=== PATIENT | female | born 1955 | race American Indian/Alaskan Native ===

== ENCOUNTER → 2019-01-02 | Outpatient (CLI) | payer MEDICARE ==
[2019-01-02 10:49] LABS: BASOPHILS ABSOLUTE AUTO 0.06 K/mm3 (0.00-0.23); BASOPHILS PERCENT AUTO 1 % (0-2); EOSINOPHILS ABSOLUTE AUTO 0.12 K/mm3 (0.00-0.68); EOSINOPHILS PERCENT AUTO 2 % (0-6); Hematocrit 34.7 % (33.0-51.0); IMMATURE GRAN ABSOLUTE AUTO 0.03 K/mm3 (0.00-0.10); IMMATURE GRAN PERCENT AUTO 1 % (0-1); LYMPHOCYTES ABSOLUTE AUTO 1.98 K/mm3 (0.84-5.20); LYMPHOCYTES PERCENT AUTO 33 % (21-46); MONOCYTES ABSOLUTE AUTO 0.43 K/mm3 (0.16-1.47); MONOCYTES PERCENT AUTO 7 % (4-13); Mean Corpuscular HGB 35.3 pg (26.0-34.0); Mean Corpuscular HGB Conc 34.6 g/dL (31.5-36.5); Mean Corpuscular Volume 102 fL (80-100); Mean Platelet Volume 10.4 fL (9.1-12.4); NEUTROPHILS ABSOLUTE AUTO 3.35 K/mm3 (1.96-9.15); NEUTROPHILS PERCENT AUTO 56 % (41-73); Platelet Count 200 K/mm3 (150-400); RDW Coefficient Variation 17.6 % (11.7-14.2); RDW Standard Deviation 65.1 fL (35.1-46.3); White Blood Cell Count 5.97 K/mm3 (4.00-11.30)
[2019-01-02 10:58] LABS: Alanine Aminotransfer (ALT/SGP 79 U/L (12-78); Albumin, Blood 2.8 g/dL (3.4-5.0); Albumin/Globulin Ratio 0.8 (0.8-1.8); Alk Phos 129 U/L (40-126); Anion Gap 14 mmol/L (6-16); Aspartate Aminotrans (AST/SGOT 198 U/L (12-37); Bilirubin, Total 0.6 mg/dL (0.1-1.0); Blood Urea Nitrogen 8 mg/dL (8-24); Bun/Creatinine Ratio 10.1 (12.0-20.0); CO2, Blood 30 mmol/L (21-32); Calcium, Blood 8.8 mg/dL (8.5-10.1); Chloride, Blood 101 mmol/L (98-108); Creatinine, Blood 0.79 mg/dL (0.40-1.00); Globulin, Blood 3.5 g/dL (2.2-4.0); Glomerular Filtration Rate >60 (60-); Glucose, Blood 151 mg/dL (70-99); Potassium, Blood 2.7 mmol/L (3.5-5.5); Sodium, Blood 145 mmol/L (136-145); Total Protein, Blood 6.3 g/dL (6.4-8.2)
== END | disposition home or self-care (01) ==
LOC: LAB EV 10:45 → LAB SHORT 10:45
PROVIDERS: Family Medicine
DX: R60.0 Localized edema (principal)
CPT/HCPCS: 80053; 85025

== ENCOUNTER 2019-02-28 22:26 | Inpatient (IN) | payer MEDICARE ==
[~2019-02-28] VITALS: Ht 154.9 cm; Wt 59.9 kg
[2019-02-28 22:51] LABS: BASOPHILS ABSOLUTE AUTO 0.07 K/mm3 (0.00-0.23); BASOPHILS PERCENT AUTO 2 % (0-2); EOSINOPHILS ABSOLUTE AUTO 0.08 K/mm3 (0.00-0.68); EOSINOPHILS PERCENT AUTO 2 % (0-6); Hematocrit 31.5 % (33.0-51.0); Hemoglobin 10.9 g/dL (11.5-16.0); IMMATURE GRAN ABSOLUTE AUTO 0.03 K/mm3 (0.00-0.10); IMMATURE GRAN PERCENT AUTO 1 % (0-1); LYMPHOCYTES ABSOLUTE AUTO 1.35 K/mm3 (0.84-5.20); LYMPHOCYTES PERCENT AUTO 32 % (21-46); MONOCYTES ABSOLUTE AUTO 0.53 K/mm3 (0.16-1.47); MONOCYTES PERCENT AUTO 13 % (4-13); Mean Corpuscular HGB 37.5 pg (26.0-34.0); Mean Corpuscular HGB Conc 34.6 g/dL (31.5-36.5); Mean Corpuscular Volume 108 fL (80-100); Mean Platelet Volume 10.3 fL (9.1-12.4); NEUTROPHILS ABSOLUTE AUTO 2.13 K/mm3 (1.96-9.15); NEUTROPHILS PERCENT AUTO 51 % (41-73); Platelet Count 151 K/mm3 (150-400); RDW Coefficient Variation 12.8 % (11.7-14.2); Red Blood Cell Count 2.91 M/mm3 (3.80-5.20); White Blood Cell Count 4.19 K/mm3 (4.00-11.30)
[2019-02-28 22:52] LABS: Base Excess Venous 3.6 mmol/L; Bicarbonate Venous 27.3 mmol/L (24.0-30.0); PCO2 Venous 42.8 mmHg (38-42); PO2 Venous 110 mmHg (38-42); pH Blood Venous 7.43 (7.34-7.37)
[2019-02-28 23:21] LABS: Alanine Aminotransfer (ALT/SGP 43 U/L (12-78); Albumin, Blood 2.5 g/dL (3.4-5.0); Albumin/Globulin Ratio 0.9 (0.8-1.8); Alk Phos 114 U/L (50-136); Anion Gap 16 mmol/L (6-16); Aspartate Aminotrans (AST/SGOT 106 U/L (12-37); Bilirubin, Total 0.4 mg/dL (0.1-1.0); Blood Urea Nitrogen 8 mg/dL (8-24); Bun/Creatinine Ratio 11.9 (12.0-20.0); CO2, Blood 26 mmol/L (21-32); Calcium, Blood 7.8 mg/dL (8.5-10.1); Chloride, Blood 105 mmol/L (98-108); Creatinine, Blood 0.67 mg/dL (0.40-1.00); Globulin, Blood 2.8 g/dL (2.2-4.0); Glomerular Filtration Rate >60 (60-); Glucose, Blood 82 mg/dL (70-99); Potassium, Blood 2.6 mmol/L (3.5-5.5); Sodium, Blood 147 mmol/L (136-145); Total Protein, Blood 5.3 g/dL (6.4-8.2); Troponin I <0.015 ng/mL (0.000-0.040)
[2019-02-28 23:40] LABS: Ethanol (Alcohol), Blood, Med 302 mg/dL
[2019-03-01] MEDS ORDERED: ATEN25 (01:17)
[2019-03-01] MEDS ORDERED: AMLO5 PO (01:17)
[2019-03-01] MEDS ORDERED: CLON1 (01:17)
[2019-03-01] MEDS ORDERED: LISI5 PO (01:18)
[2019-03-01 04:13] LABS: Hematocrit 36.1 % (33.0-51.0); Hemoglobin 12.4 g/dL (11.5-16.0); Mean Corpuscular HGB 37.1 pg (26.0-34.0); Mean Corpuscular HGB Conc 34.3 g/dL (31.5-36.5); Mean Corpuscular Volume 108 fL (80-100); Mean Platelet Volume 10.3 fL (9.1-12.4); Platelet Count 177 K/mm3 (150-400); RDW Coefficient Variation 12.9 % (11.7-14.2); RDW Standard Deviation 51.1 fL (35.1-46.3); Red Blood Cell Count 3.34 M/mm3 (3.80-5.20); White Blood Cell Count 5.74 K/mm3 (4.00-11.30)
[2019-03-01 04:38] LABS: Alanine Aminotransfer (ALT/SGP 53 U/L (12-78); Albumin, Blood 2.8 g/dL (3.4-5.0); Albumin/Globulin Ratio 0.9 (0.8-1.8); Alk Phos 134 U/L (50-136); Anion Gap 12 mmol/L (6-16); Aspartate Aminotrans (AST/SGOT 111 U/L (12-37); Bilirubin, Total 0.5 mg/dL (0.1-1.0); Blood Urea Nitrogen 7 mg/dL (8-24); Bun/Creatinine Ratio 9.9 (12.0-20.0); CO2, Blood 26 mmol/L (21-32); Calcium, Blood 7.7 mg/dL (8.5-10.1); Chloride, Blood 108 mmol/L (98-108); Creatinine, Blood 0.71 mg/dL (0.40-1.00); Globulin, Blood 3.1 g/dL (2.2-4.0); Glomerular Filtration Rate >60 (60-); Glucose, Blood 101 mg/dL (70-99); Potassium, Blood 3.5 mmol/L (3.5-5.5); Sodium, Blood 146 mmol/L (136-145); Total Protein, Blood 5.9 g/dL (6.4-8.2)
--- NOTE | 2019-03-01 06:52 | NUR ---
SURGICAL FLOOR SUMMARY (NOC) PATIENT ARRIVED TO SURGICAL FLOOR THIS SHIFT FROM ER ADMITTED OBS. PATIENT ALERT AND ORIENTED X4 WITH NOTED ANXIETY AND NONCOMPLIANCE OF HOME OXYGEN USE AND MEDICATIONS. PATIENT SOB WITH EXCERTION AND SATURATIONS REMAINED IN THE LOW 80% ON 6 LPM NC - RESPIRTORY THERAPY CALLED AND MD HOBSON CALLED - NEW ORDERS PLACED AND PATIENT PLACE ON HIGH FLOW CANNULA AT 8-10 LPM AND GIVEN NEB TREATMENT. PATIENT AMBULATES TO BATHROOM WITH STEADY GAIT. HEART RATE 80'S IN NSR WITH NO EVENTS NOTED. PATIENT VOIDING DARK URINE - UNABLE TO COLLECT A CLEAN SAMPLE AT THIS TIME. PATIENT DENIES ANY CHEST PAIN, PRESSURE OR DISCOMFORT. PATIENT NAUSEAS AT TIMES - MEDICATED PER EMAR. NO FURTHER ACUTE FINDINGS NOTED. LUNG SOUNDS CLEAR TO DIM WITH WHEEZES NOTED. PROVIDER RAUL ROUND ON PATIENT HER ON SURGICAL - NEW ORDERS FOR STAT CT SCAN DUE TO ELEVATED DDIMMER - AWAITING CT RESULTS. WILL CONTINUE TO MONITOR AND REPORT TO DAYSLAURAFT RN.
[2019-03-01 07:14] LABS: Adenovirus Not Detected (NOT DETECT); Bordetella pertussis Not Detected (NOT DETECT); Chlamydophila pneumoniae Not Detected (NOT DETECT); Coronavirus 229E Not Detected (NOT DETECT); Coronavirus HKU1 Not Detected (NOT DETECT); Coronavirus NL63 Not Detected (NOT DETECT); Coronavirus OC43 Not Detected (NOT DETECT); Human Metapneumovirus Not Detected (NOT DETECT); Human Rhinovirus/Enterovirus Not Detected (NOT DETECT); Influenza A Not Detected (NOT DETECT); Influenza A/2009-H1 Not Detected (NOT DETECT); Influenza A/H1 Not Detected (NOT DETECT); Influenza A/H3 Not Detected (NOT DETECT); Influenza B Not Detected (NOT DETECT); Mycoplasma pneumoniae Not Detected (NOT DETECT); Parainfluenza Virus 1 Not Detected (NOT DETECT); Parainfluenza Virus 2 Not Detected (NOT DETECT); Parainfluenza Virus 3 Not Detected (NOT DETECT); Parainfluenza Virus 4 Not Detected (NOT DETECT); Respiratory Syncytial Virus Not Detected (NOT DETECT)
--- NOTE | 2019-03-01 07:37 | NUR ---
dr wilcox called with result chest ct
--- NOTE | 2019-03-01 07:45 | NUR ---
talked with dr wilcox she also talked with dr vázquez re ct results
--- NOTE | 2019-03-01 08:45 | NUR ---
transfered to icu 10 via bed
--- NOTE | 2019-03-01 09:21 | NUR ---
ASSUMED CARE: PT TRANSFERRED FROM SURGICAL FLOOR TO ICU 10. DISCUSSED PT'S CASE WITH DR HOPPER AND DR LUNA. PT IS CURRENTLY ON 7L [place] NC. INSTRUCTED BY DR HOPPER TO TITRATE FOR SATS GREATER THAN 88%. LUNG SOUNDS TIGHT AND DIMINISHED IN BASES, CLEAR IN UPPER LOBES. NSR AT THIS TIME. DENIES NEEDS BESIDES TREMORS, SEE EMAR AND CIWA. ULTRA SOUND AT BEDSIDE AT THIS TIME. NO FURTHER NEEDS OR CONCERNS AT PRESENT
[2019-03-01 10:33] LABS: Anion Gap 11 mmol/L (6-16); Blood Urea Nitrogen 7 mg/dL (8-24); Bun/Creatinine Ratio 11.2 (12.0-20.0); CO2, Blood 25 mmol/L (21-32); Calcium, Blood 7.5 mg/dL (8.5-10.1); Chloride, Blood 103 mmol/L (98-108); Creatinine, Blood 0.63 mg/dL (0.40-1.00); Glomerular Filtration Rate >60 (60-); Glucose, Blood 147 mg/dL (70-99); Potassium, Blood 3.9 mmol/L (3.5-5.5); Sodium, Blood 139 mmol/L (136-145)
--- NOTE | 2019-03-01 12:23 | NUR ---
Echocardiogram completed.
--- NOTE | 2019-03-01 14:00 | NUR ---
DR HOPPER INSTRUCTED TO ATTEMPT TO GET PT UP AND SEE HOW HER SATURATION DO. DISCUSSED WITH PT SHE WAS FEELING DIZZY AT THIS TIME. VSS AND CIWA CHARTED AND MEDICATED. WILL REATTEMPT LATER
--- NOTE | 2019-03-01 17:32 | NUR ---
SHIFT SUMMARY: PT IS ON 5L O2 VIA NC. LUNG SOUNDS HAVE REMAINED DIMINISHED IN BASES THIS SHIFT. [place] [facility] [place]IGH 80S BUT RECOVERED QUICKLY. ORDER TO TEST STOOL FOR CDIFF DUE TO FREQUENT DIARRHEA. RESULTS PENDING. CIWA SCORE HIGH 11 FOR THIS RN. MEDICATED ABLE. NO FURTHER NEEDS OR CONCERNS NOTED
[2019-03-01 21:26] LABS: C DIFFICILE BY DNA AMP Positive (Negative)
--- NOTE | 2019-03-01 21:59 | NUR ---
START OF SHIFT: REPORT FROM BK ETIENNE. PT A+O, VSS. PT ASSISTED UP TO COMMODE NEEDING MODERATE HELP TO HOLD IV TUBING AND LINES. PT PRETTY UNSTEADY ON FEET. CIWA AT THAT TIME WAS APPRX 8. PT GIVEN LIBRIUM 25mg. PT AGAIN UPT BSC AT APPRX 2200 AND REQUIRED LESS ASSIST THAN PRIOR. CIWA APPRX 4. PT STATED IS RESTING WELL. PT USING CALL LIGHT APPROPRIATELY.
--- NOTE | 2019-03-01 22:34 | NUR ---
STATUS CHANGE: DR. WRIGHT CALLED AND UPDATED. PT STATUS CHANGE TO PCU.
--- NOTE | 2019-03-01 22:35 | NUR ---
POSITIVE C-DIFF: HEEL TURNER NOTIFIED. PT IN ISOLATION PRECAUTIONS.
--- NOTE | 2019-03-01 23:14 | NUR ---
PT TRANSFER TO PCU ROOM 2: REPORT CALLED TO BON ETIENNE. ALL QUESTIONS ANSWERED. PT INFORMED AND UPDATED WITH VERBAL UNDESTANDING. PT LEFT ICU ROOM 10 AT 2315.
--- NOTE | 2019-03-02 06:04 | NUR ---
PCU NOC SHIFT SUMMARY PATIENT ALERT AND ORIENTED X4. PATIENT ON 4 LPM HIGH FLOW CANNULA WITH CONTINUOUS BIOX IN PLACE. PATIENT ARRIVED FROM ICU AND AMBULATED WITH STAND BY ASSIST TO UNIT BED - TOLERATED FAIRLY. PATIENT HAS COARSE WHEEZE TO RUB T/O ALL LUNG GARSIA WITH DIM BASES. PATIENT DENIES ANY PAIN THIS SHIFT. CIWA 6-10 THIS SHIFT MEDICATED PER EMAR. PATIENT RECIEVING FLUIDS PER EMAR. NO ACUTE EVENTS NOTED THIS SHIFT. WILL CONTINUE TO MONITOR AND REPORT TO JEFFERY ETIENNE.
--- NOTE | 2019-03-02 07:56 | NUR ---
NURSING PCU DAYSHIFT: Assumed care of pt at approx 0700. A/O, anxious this a.m., cooperative w/care. Tremulous at rest, current CIWA of 8. General weakness noted, assistance w/ambulation required. Skin is fragile w/scattered bruising, no breakdown noted. Denies any pain/discomfort at rest. Tele in place, NSR/ST, no c/o CP/pressure, SBP 135 prior to a.m. meds, no noted edema. L/S fairly cta t/o w/dim bases, dyspnea w/minimal exertion, O2 sat mid 90's on 3L NC, occ cough producing thick/yellow sputum. Abd SNT, BT+, voiding w/o difficulty per pt. PIV x2, D51/2NS w/KCL infusing at 75cc/hr. No s/s of acute distress at this time. Pt denies any current needs or questions regarding plan of care. Call light in reach, bed alarm set for safety purposes. Awaiting rounding from PMD, cont to monitor for any changes.
--- NOTE | 2019-03-02 17:44 | NUR ---
NURSING PCU DAYSHIFT SUMMARY: No significant changes noted t/o the shift. VS remained stable, respiratory and cardiac status unchanged. Pt remains forgetful and needs frequent reminders though is pleasant and redirectable w/care. Bed alarm set for safety purposes. Seen by PMD, new d/o received. Worked w/P.T., tolerated fairly well though has a poor awareness of lines and impulsiveness ntoed. Remains tremulous w/current CIWA of 6, meds administered as ordered. Pt denies any questions/needs at this time, call light in reach, cont to monitor until rpt is given to NOC RN.
--- NOTE | 2019-03-03 07:53 | NUR ---
SHIFT SUMMARY PATIENT PLEASENT THROUGHOUT THE NIGHT. PATIENT EDUCATED ON THE USE OF THE CALL LIGHT FREQUENTLY BUT PATIENT DID NOT USE IT APPROPRIATELY. PATIENT SET OFF THE BED ALARM FREQUENTLY LAST NIGHT WHEN GETTING UP TO USE THE BSC. PATIENT DID APPEARE TO NAP ON AND OFF THROUGHOUT THE NIGHT. ABX GIVEN PER ORDERS. VITAL SIGNS CHARTED. REPORT GIVEN TO ONCOMING RN.
--- NOTE | 2019-03-03 09:33 | NUR ---
PT IS SITTING UP IN BED, A BIT ANXIOUS ABOUT GETTING HOME. WILL CONTINUE MONITORING AND WORK ON DISCHARGE PAPERWORK. GIVING AM ABX AND MEDS, PT ON ROOM AIR AT THIS TIME O2 SAT 90-92%. PT STATES SHE DOES NOT HAVE O2 AT HOME AT THIS TIME, WILL MONITOR O2 SAT BEFORE DISCHARGE. BED LOCKED AND LOW, HOB ELEVATED.
[2019-03-03] MEDS ORDERED: FOLI1 PO (09:52)
[2019-03-03] MEDS ORDERED: B-1100 MG PO (09:53)
[2019-03-03] MEDS ORDERED: DELTASONE20 MG PO (09:53)
[2019-03-03] MEDS ORDERED: Vsl#3 Capsule1 EACH PO (09:53)
[2019-03-03] MEDS ORDERED: VANCOMYCIN SOLUTION PO (09:57)
--- NOTE | 2019-03-03 13:02 | NUR ---
WENT THROUGH PAPERWORK WITH PATIENT AND EXPLAINED MEDICATIONS UPON DISCHARGE. PT STATED UNDERSTANDING AND WILL FILL THE SCRIPTS ORDERED. PT STATES SHE IS GOING BACK TO [place] IN A COUPLE OF WEEKS. ENCOURAGED HER TO FOLLOW UP WITH PRIMARY CARE PHYSICIAN.
== END 2019-03-03 12:38 | disposition home or self-care (01) | DRG 193 ==
LOC: ER 22:26 → ICUW 22:27 → SURS 22:27 → ICUW 03-01 08:34 → PCU 03-01 23:14
PROVIDERS: Emergency Medicine; Internal Medicine; ADMIT Internal Medicine
DX: J18.1 Lobar pneumonia, unspecified organism (principal); J96.21 Acute and chronic respiratory failure with hypoxia; E87.0 Hyperosmolality and hypernatremia; J44.1 Chronic obstructive pulmonary disease with (acute) exacerbation; J98.11 Atelectasis; A04.72 Enterocolitis due to Clostridium difficile, not specified as recurrent; I10 Essential (primary) hypertension; E86.0 Dehydration; F17.210 Nicotine dependence, cigarettes, uncomplicated; I95.0 Idiopathic hypotension; K70.30 Alcoholic cirrhosis of liver without ascites; F10.929 Alcohol use, unspecified with intoxication, unspecified; Y90.8 Blood alcohol level of 240 mg/100 ml or more
CPT/HCPCS: 0099U; 36415; 71046; 71260; 76705; 80048; 80053; 82803; 83880; 84145; 84484; 85025; 85027; 85379; 87324; 87493; 93005; 93010; 93306; 94640; 94761; 94762; 96361; 96365; 96366; 96367; 96368; 96372; 96375; 97161; 97530; 99285-25; G0378; G0480; J1650; J1956; J2060; J2405; J2930; J3411; J3475; J3480; J7030; J7042; J7512; Q9967